=== PATIENT | female | born 1985 | race Two or more races ===

== ENCOUNTER 2023-01-28 05:38 | Day surgery (SDC) | payer OTHER ==
[~2023-01-28] VITALS: Ht 167.6 cm; Wt 66.2 kg
[~2023-01-28 05:38] MED LIST: SYNTHROID112 MCG PO
[2023-01-28] MEDS ORDERED: NEURONTIN300 MG PO (09:09)
[2023-01-28] MEDS ORDERED: KETO10TA2 PO (09:09)
[2023-01-28] MEDS ORDERED: PERCOCET 5-3251 EACH PO (09:09)
== END 2023-01-28 11:00 | disposition home or self-care (01) ==
LOC: CIR.AMB 05:38
PROVIDERS: ATTEND Surgery
DX: K62.5 Hemorrhage of anus and rectum (principal); K64.4 Residual hemorrhoidal skin tags; K64.8 Other hemorrhoids; N81.6 Rectocele; Z20.822 Contact with and (suspected) exposure to COVID-19